=== PATIENT | male | born 1955 | race African-American/Black ===

== ENCOUNTER 2018-05-03 19:32 | Emergency (ER) | payer OTHER ==
[~2018-05-03] VITALS: Ht 193 cm; Wt 88.5 kg
--- NOTE | ~2018-05-03 | EKG ---
[place] [address] [facility] [place] [address] ELECTROCARDIOGRAM REPORT Name: LORAINE FULLER Room #: [facility]#: [id number] Admission: 05/03/18 Attend Phys: Discharge: 05/03/18 Date of : 59 Report #: [id number] THIS REPORT FOR: //name// [facility] ED Test Date: 2018-05-03 Test Time: 21:39:19 Pat Name: ALMAZ BARON Department: Room: Gender: Level Vial Inside Grinder: [facility] : 1955 Requested By: Zandra Dixon Order Number: [id number] MD: Bandar Cardoso Measurements Intervals [place] Rate: 52 P: 44 [place]: 198 QRS: -23 QRSD: 102 T: 23 QT: 419 QTc: 390 Interpretive Statements Sinus rhythm Incomplete RBBB and LAFB RSR' in V1 or V2, right VCD No previous ECG available for comparison Electronically Signed On 05-04-2018 7:42:52 CDT by Bandar Carodso [email or web address] <ELECTRONICALLY SIGNED> By: Bandar Cardoso MD, [facility] 05/04/18 0742 [id number] 38 Bandar Cardoso MD, FACC /EPI
--- NOTE | ~2018-05-03 | EKG ---
[place] [address] [address] [facility] [place] [address] ELECTROCARDIOGRAM REPORT Name: LORAINE FULLER Room #: [facility]#: [id number] Admission: 05/03/18 Attend Phys: Discharge: 05/03/18 Date of : 59 Report #: [id number] THIS REPORT FOR: //name// [facility] ED Test Date: 2018-05-03 Test Time: 19:31:52 Pat Name: ALMAZ BARON Department: Room: Gender: [employer]: [place] : 1955 Requested By: Zandra Dixon Order Number: [id number] MD: Bandar Cardoso Measurements Intervals [place] Rate: 90 P: 50 [place]: 174 QRS: -74 QRSD: 97 T: 50 QT: 369 QTc: 452 Interpretive Statements Sinus rhythm Left anterior fascicular block RSR' in V1 or V2, right VCD No previous ECG available for comparison Electronically Signed On 05-04-2018 7:41:12 CDT by Bandar Cardoso [email or web address] <ELECTRONICALLY SIGNED> By: Bandar Cardoso MD, [facility] 05/04/18 0741 D: [id number] 30 Bandar Cardoso MD, FACC /EPI
[2018-05-03] MEDS ORDERED: IBUPROFEN 200200 M1 PO (19:57)
[2018-05-03 20:10] LABS: ABSOLUTE NEUTROPHILS 5.4 thou/uL (1.4-8.2); BASOPHILS 0.8 % (0.0-2.0); EOSINOPHILS 2.4 % (0.0-3.0); HEMATOCRIT 45.4 % (42.0-52.0); HEMOGLOBIN 14.8 gm/dL (14.0-18.0); MCH 25.3 pg (26.0-34.0); MCHC 32.7 g/dL (28.0-37.0); MCV 77.5 fL (80.0-100.0); MONOCYTES 6.5 % (1.0-8.0); PLATELET COUNT 198 thou/uL (150-400); POLYS 52.3 % (36.0-66.0); RBC 5.86 mil/uL (4.50-6.00); RDW 15.4 % (10.5-14.5); WBC 10.2 thou/uL (4.0-11.0)
[2018-05-03 20:25] LABS: ANION GAP 6 mmol/L (7-16); BUN 25 mg/dL (7-18); CALCIUM 9.4 mg/dL (8.5-10.1); CHLORIDE 106 mmol/L (98-107); CO2 27 mmol/L (21-32); CREATININE 1.7 mg/dL (0.7-1.3); GLUCOSE 110 mg/dL (74-106); SODIUM 139 mmol/L (136-145)
[2018-05-03 20:33] LABS: TROPONIN-I < 0.04 ng/mL (<0.06)
[2018-05-03] MEDS ORDERED: ZANTAC 150MG T150 MG PO (21:23)
[2018-05-03] MEDS ORDERED: PROTONIX40 MG PO (21:23)
[2018-05-03] MEDS ORDERED: ZPAK PO (21:23)
[2018-05-03 23:00] VITALS: BP 160/79
== END 2018-05-03 22:55 | disposition home or self-care (01) ==
LOC: ER 19:32
PROVIDERS: Emergency Medicine
DX: K21.9 Gastro-esophageal reflux disease without esophagitis (principal); F17.210 Nicotine dependence, cigarettes, uncomplicated